=== PATIENT | male | born 1950 | race Caucasian/White ===

== ENCOUNTER 2016-12-25 21:42 | Inpatient (IN) | payer BC ==
[~2016-12-25 21:42] MED LIST: ALDACTONE25 M1 PO; CHLORTHALIDONE25 M1 PO; COREG6.25 M1 PO; COZAAR100 M1 PO; FLOMAX0.4 M1 PO; NEURONTIN300 M1 PO; NORVASC10 M2 PO; OMEPRAZOLE20 M4 PO; ULTRAM50 M1 PO; VIAGRA PO; ZANAFLEX4 M2 PO; ZYLOPRIM100 M1 PO
[2016-12-25 23:34] LABS: ALB/GLOB RATIO 0.8 (0.8-2.0); ALBUMIN 3.5 g/dl (3.5-5.0); ALKALINE PHOSPHATASE 82 U/L (33-138); ALT/SGPT 22 U/L (12-78); BILIRUBIN,TOTAL 0.2 mg/dl (0.0-1.5); BLOOD UREA NITROGEN 72 mg/dl (6-24); CALCIUM 8.7 mg/dl (8.5-10.5); CARBON DIOXIDE-VENOUS 23 mmol/L (22-32); CHLORIDE 104 mmol/l (96-110); CREATININE 4.73 mg/dl (0.60-1.30); GLUCOSE 95 mg/dL (70-110); SODIUM 135 mmol/L (135-145); eGFR VALUE FOR BLACK 14 mL/Min
[2016-12-25 23:43] LABS: ANION GAP 14 mmol/L (0-20); AST/SGOT 20 U/L (10-40); MAGNESIUM 1.7 mg/dl (1.3-2.6); POTASSIUM 5.6 mmol/L (3.7-5.1)
[2016-12-25 23:51] LABS: PROTHROMBIN TIME 11.4 SECONDS (9.0-13.6)
[2016-12-26 01:15] LABS: BASO % 0.4 % (0-2); EOS % 4.4 % (0-7); EOSINOPHIL ABSOLUTE COUNT 0.4 tho/cmm (0.0-0.7); HCT-HEMATOCRIT 41.2 % (36.0-53.5); HGB-HEMOGLOBIN 13.8 gm/dl (13.5-17.0); IMMATURE GRANULOCYTES ABSOLUTE 0.01 tho/cmm (0-0.03); IMMATURE GRANULOCYTES PERCENT 0.1 % (0-0.3); LYMPH % 31.1 % (20-45); LYMPH ABSOLUTE COUNT 2.6 tho/cmm (0.8-4.5); MCH (MEAN CORPUSCULAR HGB) 31.7 pg (28.0-32.0); MCHC MEAN CORPUSCULAR HGB CONC 33.5 % (32.0-36.0); MCV (MEAN CELL VOLUME) 94.7 fl (82.0-96.0); MEAN PLATELET VOLUME 11.7 cmc (9.4-12.4); MONO % 9.9 % (0-12); MONOCYTE ABSOLUTE COUNT 0.8 tho/cmm (0.0-1.2); NEUTROPHIL ABSOLUTE COUNT 4.4 tho/cmm (1.6-8.0); NEUTROPHIL-AUTOMATED 4.4 tho/cmm (1.6-8.0); NEUTROPHILS % 54.1 % (40-80); PLATELET COUNT 176 tho/cmm (150-450); RED BLOOD COUNT 4.35 mil/cmm (4.40-5.70); RED CELL DISTRIBUTION WIDTH 13.3 % (12.4-16.4); WHITE BLOOD COUNT 8.2 tho/cmm (4.0-10.0)
[2016-12-26 03:10] LABS: URINE BILIRUBIN NEGATIVE (NEG); URINE BLOOD NEGATIVE (NEG); URINE GLUCOSE (UA) NEGATIVE (NEG); URINE KETONE NEGATIVE (NEG); URINE LEUKOCYTE ESTERASE NEGATIVE (NEG); URINE NITRITE NEGATIVE (NEG); URINE PROTEIN MODERATE (NEG); URINE SPECIFIC GRAVITY 1.015 (1.003-1.030)
[2016-12-26 03:12] LABS: URINE APPEARANCE CLEAR; URINE COLOR YELLOW
[2016-12-26 03:20] LABS: URINE EPITHELIAL CELLS RARE /[HPF] (0-10); URINE RBC 0 /[HPF] (0-5); URINE WBC 0-3 /[HPF] (0-5)
[2016-12-26 06:15] LABS: BASO % 0.3 % (0-2); EOS % 5.2 % (0-7); EOSINOPHIL ABSOLUTE COUNT 0.5 tho/cmm (0.0-0.7); HCT-HEMATOCRIT 38.5 % (36.0-53.5); IMMATURE GRANULOCYTES ABSOLUTE 0.01 tho/cmm (0-0.03); IMMATURE GRANULOCYTES PERCENT 0.1 % (0-0.3); LYMPH % 32.8 % (20-45); LYMPH ABSOLUTE COUNT 2.9 tho/cmm (0.8-4.5); MCH (MEAN CORPUSCULAR HGB) 31.3 pg (28.0-32.0); MCHC MEAN CORPUSCULAR HGB CONC 33.8 % (32.0-36.0); MCV (MEAN CELL VOLUME) 92.8 fl (82.0-96.0); MONO % 10.1 % (0-12); MONOCYTE ABSOLUTE COUNT 0.9 tho/cmm (0.0-1.2); NEUTROPHIL ABSOLUTE COUNT 4.5 tho/cmm (1.6-8.0); NEUTROPHIL-AUTOMATED 4.5 tho/cmm (1.6-8.0); NEUTROPHILS % 51.5 % (40-80); PLATELET COUNT 150 tho/cmm (150-450); RED BLOOD COUNT 4.15 mil/cmm (4.40-5.70); RED CELL DISTRIBUTION WIDTH 13.3 % (12.4-16.4); WHITE BLOOD COUNT 8.7 tho/cmm (4.0-10.0)
[2016-12-26 06:58] LABS: ANION GAP 16 mmol/L (0-20); BLOOD UREA NITROGEN 62 mg/dl (6-24); CALCIUM 8.4 mg/dl (8.5-10.5); CARBON DIOXIDE-VENOUS 18 mmol/L (22-32); CHLORIDE 110 mmol/l (96-110); CREATININE 3.82 mg/dl (0.60-1.30); GLUCOSE 96 mg/dL (70-110); POTASSIUM 5.1 mmol/L (3.7-5.1); SODIUM 139 mmol/L (135-145); eGFR VALUE FOR BLACK 18 mL/Min
[2016-12-26 15:39] LABS: URINE CREATININE-RANDOM 62 mg/dl (30-125); URINE SODIUM-RANDOM 93 mmol/L (20-110)
[2016-12-26 16:02] LABS: URINE UREA NITROGEN-RANDOM 457 mg/dl (350-1000)
[2016-12-27 06:35] LABS: BASO % 0.3 % (0-2); EOS % 5.8 % (0-7); EOSINOPHIL ABSOLUTE COUNT 0.4 tho/cmm (0.0-0.7); HCT-HEMATOCRIT 37.5 % (36.0-53.5); HGB-HEMOGLOBIN 12.6 gm/dl (13.5-17.0); IMMATURE GRANULOCYTES ABSOLUTE 0.01 tho/cmm (0-0.03); IMMATURE GRANULOCYTES PERCENT 0.1 % (0-0.3); LYMPH % 28.8 % (20-45); LYMPH ABSOLUTE COUNT 2.1 tho/cmm (0.8-4.5); MCH (MEAN CORPUSCULAR HGB) 31.4 pg (28.0-32.0); MCHC MEAN CORPUSCULAR HGB CONC 33.6 % (32.0-36.0); MCV (MEAN CELL VOLUME) 93.5 fl (82.0-96.0); MEAN PLATELET VOLUME 10.7 cmc (9.4-12.4); MONO % 11.5 % (0-12); MONOCYTE ABSOLUTE COUNT 0.8 tho/cmm (0.0-1.2); NEUTROPHIL ABSOLUTE COUNT 3.8 tho/cmm (1.6-8.0); NEUTROPHIL-AUTOMATED 3.8 tho/cmm (1.6-8.0); NEUTROPHILS % 53.5 % (40-80); PLATELET COUNT 165 tho/cmm (150-450); RED BLOOD COUNT 4.01 mil/cmm (4.40-5.70); RED CELL DISTRIBUTION WIDTH 13.2 % (12.4-16.4); WHITE BLOOD COUNT 7.1 tho/cmm (4.0-10.0)
[2016-12-27 06:50] LABS: ANION GAP 14 mmol/L (0-20); BLOOD UREA NITROGEN 37 mg/dl (6-24); CALCIUM 8.9 mg/dl (8.5-10.5); CARBON DIOXIDE-VENOUS 23 mmol/L (22-32); CHLORIDE 112 mmol/l (96-110); GLUCOSE 96 mg/dL (70-110); MAGNESIUM 1.5 mg/dl (1.3-2.6); PHOSPHOROUS 3.2 mg/dl (2.5-4.9); POTASSIUM 4.6 mmol/L (3.7-5.1); SODIUM 144 mmol/L (135-145); eGFR VALUE FOR BLACK 35 mL/Min
[2016-12-27 06:57] LABS: CREATININE 2.23 mg/dl (0.60-1.30)
== END 2016-12-27 14:39 | DRG 683 ==
LOC: EDMED 21:42 → EMR2 12-26 03:06 → 5EB 12-26 03:24
PROVIDERS: Family Medicine; Internal Medicine; Internal Medicine Nephrology; ADMIT Hospitalist
DX: N17.9 Acute kidney failure, unspecified (principal); E87.2 Acidosis; I13.10 Hypertensive heart and chronic kidney disease without heart failure, with stage 1 through stage 4 chronic kidney disease, or unspecified chronic kidney disease; I42.9 Cardiomyopathy, unspecified; R07.9 Chest pain, unspecified; E86.0 Dehydration; N18.3 Chronic kidney disease, stage 3 (moderate); E87.5 Hyperkalemia; K21.9 Gastro-esophageal reflux disease without esophagitis; I95.1 Orthostatic hypotension; E66.9 Obesity, unspecified; M10.9 Gout, unspecified; E78.5 Hyperlipidemia, unspecified; M19.90 Unspecified osteoarthritis, unspecified site; E55.9 Vitamin D deficiency, unspecified; N40.0 Benign prostatic hyperplasia without lower urinary tract symptoms; I25.2 Old myocardial infarction; Z68.30 Body mass index [BMI] 30.0-30.9, adult; N52.9 Male erectile dysfunction, unspecified; Z85.828 Personal history of other malignant neoplasm of skin; Z87.891 Personal history of nicotine dependence; Z85.038 Personal history of other malignant neoplasm of large intestine; Z93.3 Colostomy status
CPT/HCPCS: A9540; A9558; J7030